=== PATIENT | male | born 1985 | race Caucasian/White ===

== ENCOUNTER 2024-10-04 22:32 | Emergency (ER) | payer MEDICAID, SELFPAY ==
[2024-10-04 22:33] VITALS: BMI 22.4
--- NOTE | 2024-10-04 22:50 | PC.NURSE ---
[facility] CONTACTED AT THIS TIME, WILL SEND OFFICER.
--- NOTE | 2024-10-04 23:12 | PC.NURSE ---
[facility] HERE TO TALK WITH PATIENT.
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
[2024-10-05 00:17] VITALS: BP 118/79; PULSE 94; RESP 17; TEMP 36.7; O2SAT 97
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
--- NOTE | 2024-10-05 03:47 | PC.NURSE ---
CALLED PATIENT IN LOBBY AND OUTSIDE, NO ANSWER RECEIVED.
--- NOTE | 2024-10-05 04:09 | PC.NURSE ---
CALLED PATIENT IN LOBBY AND OUTSIDE, NO ANSWER RECEIVED.
--- NOTE | 2024-10-05 04:27 | PC.NURSE ---
CALLED PATIENT IN THE LOBBY AND OUTSIDE, NO ANSWER RECEIVED.
== END 2024-10-05 04:27 | disposition left against medical advice (07) ==
PROVIDERS: Emergency Provider Emergency Medicine; PCP Family Medicine
DX: S29.9XXA Unspecified injury of thorax, initial encounter (principal); Y09 Assault by unspecified means; Z53.29 Procedure and treatment not carried out because of patient's decision for other reasons
CPT/HCPCS: 71250; 99281

== ENCOUNTER 2024-12-22 22:55 | Emergency (ER) | payer MEDICAID, SELFPAY ==
[2024-12-22 23:10] VITALS: BP 134/82; PULSE 89; RESP 18; TEMP 36.9; O2SAT 98; BMI 25.4
--- NOTE | 2024-12-22 23:17 | XR_ITS ---
Examination: PA and lateral chest 2 views Thanking portable upright PA and lateral chest 2 views Date and time: December 22, 2024 2323 hours Indication coughing chest pain beginning one week ago FINDINGS: Normal heart size. Lungs are clear. Subacute fracture right ninth rib in the midaxillary line IMPRESSION: No pneumonia pneumothorax or pulmonary edema Subacute appearing fracture right ninth rib in the midaxillary line
[2024-12-23] MEDS: DEXAMETHASONE SOD PHOS INJ 10 MG/ML VIAL PO (00:26)
[2024-12-23] MEDS: ACETAMINOPHEN 500 MG TABLET 1000 MG PO (00:27)
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
== END 2024-12-23 00:36 | disposition home or self-care (01) ==
PROVIDERS: Emergency Provider Emergency Medicine; PCP Family Medicine
DX: J06.9 Acute upper respiratory infection, unspecified (principal); F17.210 Nicotine dependence, cigarettes, uncomplicated
CPT/HCPCS: 71046; 87400; 87811; 99283; J1100; A9270